=== PATIENT | female | born 1945 | race Caucasian/White ===

== ENCOUNTER → 2016-09-22 | Outpatient (CLI) | payer OTHER, MEDICAID | LOC: LAB.O 16:43 | DX: K52.89 Other specified noninfective gastroenteritis and colitis (principal); R19.4 Change in bowel habit ==

== ENCOUNTER → 2018-06-02 | Outpatient (CLI) | payer MEDICAID ==
--- NOTE | 2018-06-02 21:51 | US ---
EXAM DESCRIPTION: Breast,Bilateral: Ultrasound CLINICAL HISTORY: 73 yearsFemaleDX JUMANA COMPARISON: Digital screening breast tomosynthesis bilateral breast 04/27/2018. TECHNIQUE: Transcutaneous scanning of the bilateral breast utilizing boykin-scale and Doppler modes. Scanning performed by the electroencephalogram technologist and Dr. Linh smalls. FINDINGS: Scanning of the retroareolar left breast. Focal fibroglandular echotexture mostly surrounded by fatty tissues. Scanning of the right breast laterally with emphasis on the 300 clock position 7 cm from the nipple. Almost totally fatty echotexture with minimal islands of fibroglandular tissue. Bilaterally there was no distinct solid mass or cyst. No parenchymal edema or large calcifications. No overlying skin changes. No abnormal vascularity. IMPRESSION: Benign exam. BIRAD CATEGORY: 2 BENIGN FINDINGS. RECOMMENDATIONS: FOLLOW UP: Return to routine digital bilateral screening, one year interval from April 2018. Written communication explaining the IMPRESSION and follow-up, will be mailed to the patient and referring health care provider. According to the [employer], yearly mammograms are recommended starting at age 40 and continuing as long as a woman is in good health. Any breast change noted on a breast self-exam should be reported promptly to the patient's healthcare provider. Breast MRI is recommended for women with an approximately 20-25% or greater lifetime risk of breast cancer, including women with a strong family history of breast or ovarian cancer and women who have been treated for Hodgkin's disease. A negative mammographic report should not delay tissue diagnosis in patients with significant clinical history or physical findings. Extremely dense breast tissue limits the sensitivity of digital mammography. The FINDINGS and the FOLLOW-UP plan were reviewed in person with the patient after the examination. Written communication explaining the IMPRESSION and FOLLOW-UP will be mailed to the patient and referring care provider. Electronically signed by: Vincent Melton MD 06/02/2018 9:49 PM CDT
== END ==
LOC: US 10:34
PROVIDERS: ATTEND Surgery
DX: R92.8 Other abnormal and inconclusive findings on diagnostic imaging of breast (principal)